=== PATIENT | male | born 1930 | race Caucasian/White ===

== ENCOUNTER 2019-11-03 05:06 | Emergency (ER) | payer OTHER ==
[~2019-11-03] VITALS: Ht 182.9 cm; Wt 85.0 kg
[2019-11-03] MEDS ORDERED: oxymetazoline 15 ML nasal spray NS ONE (05:10)
--- NOTE | 2019-11-03 06:33 | NUR ---
REPORT CALLED TO [facility] AT [facility]. REINFORCED IMPORTANCE OF TAKING PT TO [facility] IF BLEEDING CONTINUES SINCE WE DONT HAVE AN ENT AT THIS HOSPITAL.
--- NOTE | 2019-11-03 06:45 | NUR ---
[facility] HERE.
[2019-11-03 07:02] VITALS: BP 127/75
== END 2019-11-03 07:06 | disposition home or self-care (01) ==
LOC: ER 05:08
DX: R04.0 Epistaxis (principal); M25.561 Pain in right knee; F03.90 Unspecified dementia, unspecified severity, without behavioral disturbance, psychotic disturbance, mood disturbance, and anxiety
CPT/HCPCS: 30901; 99284